=== PATIENT | female | born 1975 | race African-American/Black ===

== ENCOUNTER 2016-10-06 14:25 | Emergency (ER) | payer OTHER ==
[~2016-10-06] VITALS: Ht 160 cm; Wt 75.0 kg
[~2016-10-06 14:25] MED LIST: MUCINEX
[2016-10-06 14:50] VITALS: BP 128/82
[2016-10-06] MEDS ORDERED: METHYLPREDNISOLONE ACETATE 40MG/ML VIAL IM ONE (15:15)
[2016-10-06] MEDS ORDERED: METHYLPREDNISOLONE ACETATE 40MG/ML VIAL IM SCH (15:30)
[2016-10-06] MEDS ORDERED: DIPHENHYDRAMINE 50MG CAPSULE PO ONE (15:30)
== END 2016-10-06 15:56 | disposition home or self-care (01) ==
LOC: ER 15:36
DX: T78.40XA Allergy, unspecified, initial encounter (principal); H93.8X2 Other specified disorders of left ear; R22.9 Localized swelling, mass and lump, unspecified
CPT/HCPCS: 96372; 99283; J1030; Q0163

== ENCOUNTER 2023-12-04 13:52 | Inpatient (IN) | payer BC, OTHER ==
[~2023-12-04] VITALS: Ht 157.5 cm; Wt 82.6 kg
[2023-12-04 15:43] LABS: BASOPHILS % 1.1 % (0.0-2.0); EOSINOPHILS % 5.5 % (0.0-5.0); HEMATOCRIT. 41.3 % (36.0-48.0); HEMOGLOBIN. 13.5 g/dL (12.0-16.0); LYMPHOCYTES % 31.2 % (20.0-50.0); MEAN CORPUSCULAR HEMOGLOBIN 30.4 pg (28.0-32.0); MEAN CORPUSCULAR HGB CONC 32.7 g/dL (31.0-37.0); MEAN CORPUSCULAR VOLUME 92.9 fL (81.0-99.0); MEAN PLATELET VOLUME 8.3 fl (7.4-10.4); MONOCYTES % 7.6 % (2.0-8.0); NEUTROPHILS % 54.6 % (40.0-76.0); PLATELET 256 x1000/uL (130-400); RED BLOOD CELL COUNT 4.45 mill/uL (4.2-5.4); RED CELL DISTRIBUTION WIDTH 14.5 % (11.6-14.6); WHITE BLOOD COUNT 5.6 x1000/uL (4.5-11.0)
[2023-12-04 15:47] LABS: CHLORIDE 106 mEq/L (98-107); POTASSIUM 3.7 mEq/L (3.5-5.1); SODIUM 140 mEq/L (136-145)
[2023-12-04 15:49] LABS: CALCIUM 9.5 mg/dL (8.7-10.4); CARBON DIOXIDE 29 mEq/L (21-32)
[2023-12-04 15:54] LABS: CREATININE 0.9 mg/dL (0.6-1.0); GLUCOSE 89 mg/dL (70-105); UREA NITROGEN BLOOD 14 mg/dL (9-23)
[2023-12-04 15:55] LABS: TROPONIN I HIGH SENSITIVITY 16 ng/L (3.0-34)
[2023-12-04] MEDS ORDERED: ACETAMINOPHEN 325MG TABLET PO ONE (16:00)
[2023-12-04] MEDS ORDERED: ASPIRIN 81MG TABLET PO ONE (16:00)
[2023-12-04] MEDS: ACETAMINOPHEN 325MG TABLET PO NR (16:00)
[2023-12-04 16:12] LABS: CLARITY URINE CLEAR (CLEAR); COLOR URINE YELLOW (YELLOW); GLUCOSE URINE NEGATIVE (NEGATIVE); KETONES URINE NEGATIVE (NEGATIVE); LEUKOCYTE ESTERASE URINE 1+ (NEGATIVE); NITRITE URINE NEGATIVE (NEGATIVE); OCCULT BLOOD URINE TRACE (NEGATIVE); PROTEIN URINE NEGATIVE (NEGATIVE); UROBILINOGEN URINE 0.2 E.U./dL (0.2-1.0)
[2023-12-04 16:32] LABS: BACTERIA URINE 2+; RBC URINE 0-2 /hpf (0-2); SQUAMOUS EPITHELIAL CELL URINE 1+ /lpf (RARE/1+)
[2023-12-04 19:00] LABS: TROPONIN I HIGH SENSITIVITY 15 ng/L (3.0-34)
[2023-12-04 20:00] VITALS: BP 149/90; PULSE 55; RESP 16; TEMP 36.6696; O2SAT 100
[2023-12-04] MEDS: ASPIRIN 81MG TABLET PO NR (21:56)
[2023-12-04] MEDS ORDERED: ONDANSETRON HCL 4MG/2ML INJ IV PRN (22:00)
[2023-12-04] MEDS ORDERED: CLONIDINE 0.1MG TABLET PO PRN (22:00)
[2023-12-04] MEDS ORDERED: ZOLPIDEM TARTRATE 5MG TABLET PO PRN (22:00)
[2023-12-05] VITALS (8 sets, daily range): BP systolic 107–130; BP diastolic 71–79; PULSE 60–88; RESP 18–20; TEMP 36.28068–36.89184; O2SAT 99–100
[2023-12-05] MEDS: ACETAMINOPHEN 325MG TABLET PO PRN (00:34)
[2023-12-05 07:25] LABS: CHLORIDE 108 mEq/L (98-107); POTASSIUM 3.9 mEq/L (3.5-5.1); SODIUM 142 mEq/L (136-145)
[2023-12-05 07:26] LABS: CALCIUM 9.2 mg/dL (8.7-10.4); CARBON DIOXIDE 28 mEq/L (21-32); CREATINE KINASE MB FRACTION 0.8 ng/mL (0.5-3.6); TROPONIN I HIGH SENSITIVITY 16 ng/L (3.0-34)
[2023-12-05 07:31] LABS: CREATININE 0.9 mg/dL (0.6-1.0); GLUCOSE 92 mg/dL (70-105); UREA NITROGEN BLOOD 13 mg/dL (9-23)
[2023-12-05 07:32] LABS: CREATINE KINASE 114 IU/L (34-145)
[2023-12-05 07:53] LABS: BASOPHILS % 0.6 % (0.0-2.0); EOSINOPHILS % 5.9 % (0.0-5.0); HEMATOCRIT. 37.3 % (36.0-48.0); HEMOGLOBIN. 12.3 g/dL (12.0-16.0); LYMPHOCYTES % 38.4 % (20.0-50.0); MEAN CORPUSCULAR HEMOGLOBIN 30.4 pg (28.0-32.0); MEAN CORPUSCULAR HGB CONC 32.9 g/dL (31.0-37.0); MEAN CORPUSCULAR VOLUME 92.6 fL (81.0-99.0); MEAN PLATELET VOLUME 8.8 fl (7.4-10.4); MONOCYTES % 10.4 % (2.0-8.0); NEUTROPHILS % 44.7 % (40.0-76.0); PLATELET 223 x1000/uL (130-400); RED BLOOD CELL COUNT 4.03 mill/uL (4.2-5.4); RED CELL DISTRIBUTION WIDTH 14.3 % (11.6-14.6); WHITE BLOOD COUNT 4.9 x1000/uL (4.5-11.0)
[2023-12-05] MEDS: ENOXAPARIN 40MG/0.4ML SYR SUBCUT SCH (09:16)
[2023-12-05 13:26] LABS: *AMPHETAMINES SCREEN URINE NEGATIVE (NEGATIVE)
[2023-12-05 13:27] LABS: *BARBITURATES SCREEN URINE NEGATIVE (NEGATIVE); *BENZODIAZEPINES SCREEN URINE NEGATIVE (NEGATIVE); *COCAINE SCREEN URINE NEGATIVE (NEGATIVE); METHADONE URINE SCREEN NEGATIVE (NEGATIVE); OPIATES URINE SCREEN NEGATIVE (NEGATIVE)
[2023-12-05 13:28] LABS: CANNABINOID URINE SCREEN PRESUMPTIVE POSITIVE (NEGATIVE); ECSTASY MDMA SCREEN URINE NEGATIVE (NEGATIVE); PHENCYCLIDINE URINE SCREEN NEGATIVE (NEGATIVE)
[2023-12-06] VITALS: BP 107/74; PULSE 60; RESP 19; TEMP 36.3918; O2SAT 100
[2023-12-06 04:00] VITALS: BP 107/72; PULSE 60; RESP 19; TEMP 36.22512; O2SAT 100
[2023-12-06 08:00] VITALS: BP 141/85; PULSE 66; RESP 18; TEMP 35.78064; TEMP 36.3918; O2SAT 100
[2023-12-06 09:08] LABS: HCG SCREEN NEGATIVE
[2023-12-06] MEDS ORDERED: MIDAZOLAM HCL 2 MG/2 ML VIAL ONE (09:48)
[2023-12-06] MEDS ORDERED: IODIXANOL 320MG/ML 100 ML BOTTLE IV ONE (09:48)
[2023-12-06] MEDS ORDERED: FENTANYL CITRATE/PF 50MCG/ML 2ML VIAL ONE (09:48)
[2023-12-06] MEDS ORDERED: HEPARIN 1000 UNITS/ML 10ML ONE (09:48)
[2023-12-06] MEDS ORDERED: VERAPAMIL HCL 2.5 MG/1 ML 2ML VIAL IV ONE (09:48)
[2023-12-06] MEDS ORDERED: LIDOCAINE HCL 1% 10 MG/ML 10ML VIAL ONE (09:48)
[2023-12-06] MEDS ORDERED: ASPIRIN 325MG TABLET ONE (09:54)
[2023-12-06] MEDS ORDERED: DIPHENHYDRAMINE 50MG/ML VIAL ONE (09:58)
[2023-12-06] MEDS ORDERED: ATROPINE SULFATE 1MG/10ML SYR IV PRN (10:45)
[2023-12-06] MEDS ORDERED: ASPI-1497 MT (15:41)
[2023-12-06] MEDS ORDERED: AMLO2.5T45 PO (15:41)
[2023-12-06] MEDS ORDERED: CIPR-264 MT (15:41)
[2023-12-06 16:00] VITALS: BP 111/69; PULSE 64; RESP 18; TEMP 36.55848; O2SAT 100
[2023-12-06 16:04] VITALS: BP 111/69; PULSE 64; TEMP 97.9; O2SAT 100
[2023-12-07] MEDS ORDERED: AMLODIPINE 2.5MG TABLET PO SCH (09:00)
== END 2023-12-06 17:00 | disposition home or self-care (01) | DRG 287 ==
LOC: ER 13:52 → EDBEDREQ 19:24 → EDBEDREQTM 19:24 → 5WST 21:05 → 7EST 23:47
PROVIDERS: ADMIT Internal Medicine; ATTEND Internal Medicine
PROC: 4A023N7 Measurement of Cardiac Sampling and Pressure, Left Heart, Percutaneous Approach (ICD-10-PCS; principal; 2023-12-06)
PROC: B211YZZ Fluoroscopy of Multiple Coronary Arteries using Other Contrast (ICD-10-PCS; 2023-12-06)
DX: I20.0 Unstable angina (principal); Z20.822 Contact with and (suspected) exposure to COVID-19
CPT/HCPCS: 36415; 71045; 80048; 80305; 81003; 82550; 82553; 84484; 84703; 85025; 93005; 93458; 99285; C1769; C1887; C1893; J1200; J1644; J1650; J2250; J3010; J3490; Q9967